=== PATIENT | female | born 1980 | race Caucasian/White ===

== ENCOUNTER → 2020-12-24 | Outpatient (CLI) | payer OTHER ==
[~2020-12-24] MED LIST: COLACE100 MG PO; DITROPAN 5 MG TA5 MG PO; DOCUSATE SODIU250 MG PO; HYDROCODONE-AC1 EACH PO; IBUPROFEN600 MG PO; TYLENOL W/CODEIN1 E1 PO; ZOFRAN4 MG PO
[2020-12-24 12:18] LABS: HEMOGLOBIN 13.7 gm/dl (12.3-15.3); RED BLOOD COUNT 4.67 M/UL (4.00-5.10); WHITE BLOOD COUNT 6.6 K/UL (4.5-11.0)
== END ==
LOC: OPSV2 11:00
PROVIDERS: Obstetrics & Gynecology
DX: Z01.812 Encounter for preprocedural laboratory examination (principal); N81.9 Female genital prolapse, unspecified
CPT/HCPCS: 36415; 81001; 85025; 93005

== ENCOUNTER 2020-12-29 08:31 | Day surgery (SDC) | payer OTHER ==
[~2020-12-29] VITALS: Ht 170.2 cm; Wt 83.9 kg
[~2020-12-29 08:31] MED LIST changes: -DITROPAN 5 MG TA5 MG PO; -DOCUSATE SODIU250 MG PO; -HYDROCODONE-AC1 EACH PO
[2020-12-29] MEDS ORDERED: DOCUSATE SODIU250 MG PO (11:32)
[2020-12-29] MEDS ORDERED: HYDROCODONE-AC1 EACH PO (11:32)
[2020-12-29] MEDS ORDERED: DITROPAN 5 MG TA5 MG PO (11:32)
[2020-12-29] MEDS ORDERED: IBUPROFEN600 MG PO (11:32)
== END 2020-12-30 11:33 | disposition home or self-care (01) ==
LOC: OR 08:31 → OB 14:57 → OR 12-30 11:33
DX: N81.6 Rectocele (principal); N72 Inflammatory disease of cervix uteri; N87.9 Dysplasia of cervix uteri, unspecified; K59.00 Constipation, unspecified; M32.9 Systemic lupus erythematosus, unspecified; M79.7 Fibromyalgia; F41.0 Panic disorder [episodic paroxysmal anxiety]; Z88.0 Allergy status to penicillin
CPT/HCPCS: 84703; C1769; J1100; J1580; J2001; J2250; J2270; J2405; J2704; J2710; J3010; J7050; J7120

== ENCOUNTER → 2021-06-19 | Outpatient (CLI) | payer OTHER ==
[~2021-06-19] MED LIST changes: +DITROPAN 5 MG TA5 MG PO; +DOCUSATE SODIU250 MG PO; +HYDROCODONE-AC1 EACH PO
== END ==
LOC: CT 07:42
DX: M54.16 Radiculopathy, lumbar region (principal); R20.0 Anesthesia of skin; R29.898 Other symptoms and signs involving the musculoskeletal system
CPT/HCPCS: 72133; Q9967

== ENCOUNTER → 2021-09-08 | Outpatient (CLI) | payer OTHER | LOC: KOH-I 16:50 | DX: R06.02 Shortness of breath (principal) | CPT/HCPCS: 71046 ==